=== PATIENT | male | born 1990 | race Two or more races ===

== ENCOUNTER 2020-04-19 13:26 | Emergency (ER) | payer BC ==
[~2020-04-19] VITALS: Ht 170.2 cm; Wt 100.0 kg
[2020-04-19 13:38] VITALS: BP 163/82
[2020-04-19] MEDS ORDERED: DOXY-167 PO (15:32)
--- NOTE | 2020-04-19 15:32 | PHYS DOC ---
Past Medical History Additional Past Medical Histor: Staph infections Smoking Status: Never Smoker Drug Use: None General Adult EDM: Chief Complaint: ALLERGIC REACTION HPI: HPI: Patient is a 29 year old male presents with 24 hours of a facial rash. Patient denies any inciting events. pt w/ hx of mrsa and states rash is painful and began on forehead 1 day ago. no fever. no visual changes. no oral lesions. no pain w/ EOM. pain is mild at rest and moderate w/ palpation Review of Systems: Review of Systems: Constitutional: Denies fever or chills. [] Eyes: Denies change in visual acuity. [] HENT: Denies nasal congestion or sore throat. [] Respiratory: Denies cough or shortness of breath. [] Cardiovascular: Denies chest pain or edema. [] GI: Denies abdominal pain, nausea, vomiting, bloody stools or diarrhea. [] : Denies dysuria. [] Musculoskeletal: Denies back pain or joint pain. [] Integument: Complains of rash to the face Neurologic: Denies headache, focal weakness or sensory changes. [] Endocrine: Denies polyuria or polydipsia. [] Lymphatic: Denies swollen glands. [] Psychiatric: Denies depression or anxiety. [] Heart Score: Risk Factors: Risk Factors: DM, Current or recent (<one month) smoker, HTN, HLP, family history of CAD, obesity. Risk Scores: Score 0 - 3: 2.5% MACE over next 6 weeks - Discharge Home Score 4 - 6: 20.3% MACE over next 6 weeks - Admit for Clinical Observation Score 7 - 10: 72.7% MACE over next 6 weeks - Early Invasive Strategies Physical Exam: PE: Constitutional: Well developed, well nourished, no acute distress, non-toxic appearance. HENT: No trismus, external ears normal, left central forehead 1.5 cm rash with erythematous possible vesicle on top. No other lesions seen. Eyes: Conjunctiva clear, EOMI, nipples equal round reactive to light. Mild left periorbital edema. No pain with extraocular movements. No proptosis Neck: Normal range of motion, no tenderness, supple, no stridor. Cardiovascular: Regular rate/rhythm, peripheral pulse intact, CREW CHIEF intact Lungs & Thorax: No respiratory distress Abdomen: No distension Skin: Forehead with a erythematous approximately 1.5 cm rash in the mid to left forehead. No fluctuance, hint of a vesicle on top. Back: Full ROM Extremities: Normal inspection, no edema Neurologic: Alert and oriented X 3, normal motor function, , no focal deficits noted. Psychologic: Affect normal, judgement normal, mood normal. EKG: EKG: [] Radiology/Procedures: Radiology/Procedures: [] Course & Med Decision Making: Course & Med Decision Making Pertinent Labs and Imaging studies reviewed. 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 I also considered shingles. The patient has nothing in his TM and no conjunctival involvement. Patient does have some mild left periorbital swelling. No proptosis or pain with extraocular movements. Developed orbital cellulitis. Strict return precautions given. Will place patient on antibiotics. Dragon Disclaimer: Dragon Disclaimer: This electronic medical record was generated, in whole or in part, using a voice recognition dictation system. Departure Departure Impression: Primary Impression: Impetigo Disposition: 01 HOME, SELF-CARE Condition: STABLE Referrals: NO PCP (PCP) PCP 2-3 DAYS Patient Instructions: Impetigo Additional Instructions: EMERGENCY DEPARTMENT GENERAL DISCHARGE INSTRUCTIONS THANK YOU for coming to [facility] Emergency Department (ED) today and trusting us with your care. We trust that you had a positive experience in our Emergency Department. If you wish to speak to the department Management you can contact the line department supervisor at . YOUR FOLLOW UP INSTRUCTIONS ARE FOLLOWS: Do you have a private doctor? If you do not have a private doctor, please ask for a resource list of physicians or clinics that may be able to assist you with follow up care. The Emergency Physician has interpreted your x-rays. The X-ray specialist will also review them. If there is a change in the findings you will be notified in 48 hours when at all possible. A lab test or lab culture may have been done, your results will be reviewed and you will be notified if you need a change in treatment. ADDITIONAL INSTRUCTIONS AND INFORMATION Your care today has been supervised by a physician who is specially trained in emergency care. Many problems require more than one evaluation for a complete diagnosis and treatment. We recommend that you schedule your follow up appointment as recommended to ensure complete treatment of your illness or injury. If you are unable to obtain follow up care and continue to have a problem, or if your condition worsens we recommend that you return to the ED. We are not able to safely determine your condition over the phone nor are we able to give sound medical advice over the phone. For these safety reasons, if you call for medical advice we will ask you to come to the ED for further evaluation If you have any questions regarding these discharge instructions please call the ED at . SAFETY INFORMATION In the interest of safety, wellness, and injury prevention; we encourage you to wear your seatbelt, if you smoke; quit smoking, and we encourage your family to use protective helmet for bicycling and other sporting events that present an increased risk for head injury. IF YOUR SYMPTOMS WORSEN OR NEW SYMPTOMS DEVELOP, OR YOU HAVE CONCERNS ABOUT YOUR CONDITION; OR IF YOUR CONDITION WORSENS WHILE YOU ARE WAITING FOR YOUR FOLLOW UP APPOINTMENT; EITHER CONTACT YOUR PRIMARY CARE DOCTOR, THE PHYSICIAN WHOSE NAME AND NUMBER YOU WERE GIVEN, OR RETURN TO THE ED IMMEDIATELY. Return to the emergency room if you notice any blurry vision or any redness to the eye or rash spreading to the mormon area or rash inside the mouth. The rash most likely is impetigo but sometimes shingles has this appearance when it first starts. So if the rash starts to spread to the mormon and hairline and has more blister appearing lesions the need to return to the ER. Scripts Doxycycline Monohydrate (Mondoxyne Nl) 100 Mg Capsule 1 CAP PO BID for 10 Days, #20 CAP 0 Refills Prov: HARINI NICK MD 04/19/20 Justicifation of Admission Dx: Justifications for Admission: Justification of Admission Dx: N/A HARINI NICK MD Apr 19, 2020 15:32
== END 2020-04-19 16:53 | disposition home or self-care (01) ==
LOC: ER 13:26
DX: L01.00 Impetigo, unspecified (principal); R21 Rash and other nonspecific skin eruption; R00.2 Palpitations; Z86.14 Personal history of Methicillin resistant Staphylococcus aureus infection
CPT/HCPCS: 99283

== ENCOUNTER 2020-07-20 10:50 | Emergency (ER) | payer SELFPAY ==
[~2020-07-20] VITALS: Ht 170.2 cm; Wt 105.0 kg
[~2020-07-20 10:50] MED LIST: DOXY-167 PO
[2020-07-20 11:20] VITALS: BP 144/94
[2020-07-20] MEDS ORDERED: SELE120S2 TP ×2 (11:35→11:39)
--- NOTE | 2020-07-20 11:39 | PHYS DOC ---
Past Medical History Past Medical History: MRSA Additional Past Medical Histor: Staph infections (WELLINGTON GOLDMAN APRN) Past Surgical History: No Surgical History (WELLINGTON GOLDMAN APRN) Smoking Status: Never Smoker Alcohol Use: Occasionally Drug Use: None (WELLINGTON GOLDMAN APRN) General Adult EDM: Chief Complaint: SKIN PROBLEM HPI: HPI: Patient is a 29 year old male who presents with dry itchy scalp for the last 2 days. He states that he was afraid that he had ringworm. 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 He states that he does not use other peoples hats or brushes. He states he has no pain. He denies fever. There is no neck pain here he denies clumps of hair falling out. He states his scalp is very itchy and there are lots of flakes of skin. He denies other history. Takes no medications daily. He states he just uses a regular Suave 2 and 1 shampoo. (WELLINGTON GOLDMAN FOOTWEAR SALES COORDINATOR) Review of Systems: Review of Systems: Constitutional: Denies fever or chills. [] Eyes: Denies change in visual acuity. [] HENT: Denies nasal congestion or sore throat. [] Respiratory: Denies cough or shortness of breath. [] Cardiovascular: Denies chest pain or edema. [] GI: Denies abdominal pain, nausea, vomiting, bloody stools or diarrhea. [] : Denies dysuria. [] Musculoskeletal: Denies back pain or joint pain. [] Integument: Denies rash. Dry itchy scalp. [] Neurologic: Denies headache, focal weakness or sensory changes. [] Endocrine: Denies polyuria or polydipsia. [] Lymphatic: Denies swollen glands. [] Psychiatric: Denies depression or anxiety. [] (WELLINGTON GOLDMAN APRN) Heart Score: Risk Factors: Risk Factors: DM, Current or recent (<one month) smoker, HTN, HLP, family history of CAD, obesity. Risk Scores: Score 0 - 3: 2.5% MACE over next 6 weeks - Discharge Home Score 4 - 6: 20.3% MACE over next 6 weeks - Admit for Clinical Observation Score 7 - 10: 72.7% MACE over next 6 weeks - Early Invasive Strategies (WELLINGTON GOLDMAN APRN) Allergies: Allergies: Allergies Coded Allergies Type Severity Reaction Last Updated Verified No Known Drug Allergies 04/19/20 No (WELLINGTON GOLDMAN APRN) Physical Exam: PE: Constitutional: Well developed, well nourished, no acute distress, non-toxic appearance. [] HENT: Normocephalic, atraumatic, bilateral external ears normal, oropharynx moist, no oral exudates, nose normal. [] Eyes: PERRLA, EOMI, conjunctiva normal, no discharge. [] Neck: Normal range of motion, no tenderness, supple, no stridor. [] Cardiovascular:Heart rate regular rhythm, no murmur [] Lungs & Thorax: Bilateral breath sounds clear to auscultation [] Abdomen: Bowel sounds normal, soft, no tenderness, no masses, no pulsatile masses. [] Skin: Warm, dry, no erythema, no rash. Dry, flaky scalp. [] Back: No tenderness, no CVA tenderness. [] Extremities: No tenderness, no cyanosis, no clubbing, ROM intact, no edema. [] Neurologic: Alert and oriented X 3, normal motor function, normal sensory f unction, no focal deficits noted. [] Psychologic: Affect normal, judgement normal, mood normal. [] (WELLINGTON GOLDMAN APRN) EKG: EKG: [] (WELLINGTON GOLDMAN APRN) Radiology/Procedures: Radiology/Procedures: [] (WELLINGTON GOLDMAN APRN) Course & Med Decision Making: Course & Med Decision Making Pertinent Labs and Imaging studies reviewed. (See chart for details) See HPI. Patient has dry flaky scalp all over his scalp. There is no ringworm or missing patches of hair. Ambulatory with a steady gait. Speaks in full clear sentences. Skin pink warm and dry. Patient is given a prescription selenium sulfite topical shampoo to use twice a week. [] (WELLINGTON GOLDMAN APRN) Course & Med Decision Making I have reviewed the PA/CREDIT ASSISTANT's note and Plan of Care. I was available for consultation as needed during the patient's visit in the emergency department. I agree with the clinical impression, plans and disposition. (HARINI NICK MD) Huong Disclaimer: Huong Disclaimer: This electronic medical record was generated, in whole or in part, using a voice recognition dictation system. (WELLINGTON GOLDMAN APRN) Departure Departure Impression: Primary Impression: Dry scalp Disposition: 01 DC HOME SELF CARE/HOMELESS Condition: STABLE Referrals: NO PCP (PCP) Patient Instructions: Selenium Sulfide shampoo Additional Instructions: Use the shampoo twice weekly until it is gone. If symptoms worsen return to the ER or go to your medical doctor. Scripts Selenium Sulfide (SELENIUM SULFIDE) 120 Ml Suspension 1 YAYO TP 3X/WEEK for 14 Days, #240 ML 0 Refills APPLY 3 TIMES A WEEK. LEAVE ON SCALP FOR 2-3 MINUTES, THEN RINSE. USE FOR 2 WEEKS. Prov: WELLINGTON GOLDMAN APRN 07/20/20 WELLINGTON GOLDMAN APRN Jul 20, 2020 11:39 HARINI NICK MD Jul 20, 2020 12:05
== END 2020-07-20 11:59 | disposition home or self-care (01) ==
LOC: ER 10:50
DX: L98.8 Other specified disorders of the skin and subcutaneous tissue (principal); Z86.14 Personal history of Methicillin resistant Staphylococcus aureus infection
CPT/HCPCS: 99282